=== PATIENT | female | born 2000 ===

== ENCOUNTER 2023-07-12 13:27 | Emergency (ER) | payer BC, SELFPAY ==
--- NOTE | ~2023-07-12 | XR_ITS ---
EXAMINATION: XR HAND, LEFT CLINICAL INFORMATION: Laceration, assess foreign bodies COMPARISON: None available. TECHNIQUE: PA, lateral, and oblique views of the left hand. FINDINGS: The bones and soft tissues are normal. No fracture. Alignment is anatomic. Joint spaces are maintained. No erosions or soft tissue calcifications. XR/XR hand LT min 3V IMPRESSION: Normal left hand.
[2023-07-12 13:50] VITALS: BP 141/88; PULSE 100; RESP 19; TEMP 36.6; O2SAT 98; BMI 31.6
--- NOTE | 2023-07-12 13:52 | ED_ITS ---
HPI - Wound/Laceration General Chief Complaint: Wound/Laceration Stated Complaint: Laceration L hand Time Seen by Provider: 07/12/23 14:19 Source: patient Mode of arrival: ambulatory Limitations: no limitations History of Present Illness HPI narrative: Patient is a 22-year-old right hand dominant female presenting to the emergency department with complaint of laceration to right hand sustained at work. Patient states a piece of sheet metal fell a few inches onto her hand. Tetanus is up to date. Denies any weakness, numbness, tingling. Onset (ago): hour(s) Extremity Location: right: hand Place: work Patient tetanus UTD: Yes Context: accidental Associated symptoms: pain Treatments prior to arrival: bandage Related Data Allergies Allergy/AdvReac Type Severity Reaction Status Date / Time No Known Allergies Allergy Verified 07/12/23 13:53 Review of Systems 2 Review of Systems: As per HPI. Yes all other systems are reviewed and are negative Constitutional: Constitutional: Reports as per HPI [facility] Social History Social History Advance Directives: No Advance Directives Information Provided: No Physical Exam 2 Vital Signs: Vital Signs: Last Vital Signs Temp 98 F 07/12/23 13:50 Pulse 100 07/12/23 13:50 Resp 19 07/12/23 13:50 BP 141/88 H 07/12/23 13:50 Pulse Ox 98 07/12/23 13:50 O2 Del Method Room Air 07/12/23 13:50 BMI result Body Mass Index 31.6 Vital signs have been reviewed and appear to be correct. Blood pressure elevated. Heart rate normal. Respiratory rate normal. Temperature normal. Oxygen saturation normal. Const: General: cooperative, healthy appearing and no acute distress O rientation/consciousness: oriented to person, oriented to place, oriented to time and patient oriented x3 Limitations: no limitations HEENT: Head: Yes normocephalic and Yes atraumatic Ears: external ears normal General nose exam: Normal external nose present Face and sinus: Yes face symmetric Mouth: oropharynx normal and moist mucous membranes Throat: Yes uvula midline Eyes: Pupils: Equal, round and reactive pupils present Neck: Neck: Yes normal visual inspection and Yes supple Resp: Effort & Inspection: normal respiratory effort and able to speak in complete sentences Auscultation: clear to auscultation bilaterally Cardio: Rate: regular rate Rhythm: regular rhythm Heart sounds: S1 normal heart sound present and S2 normal heart sound present Skin: General skin exam: elasticity normal and turgor normal Neuro: General: oriented to person, oriented to place, oriented to time, patient oriented x3, moves all extremities, no focal motor deficits and CN's II- XI intact bilaterally Cranial nerves: Yes Equal, round and reactive pupils present Cognition (Neuro): normal cognition Extrem: General: Yes full ROM, Yes normal exam except as noted, Yes no pedal edema and Yes no calf tenderness Right upper extremity: Extremity exam: right hand Details: normal capillary refill, neuromotor exam normal, neurosensory exam normal, tendon exam normal, normal ROM of fingers and laceration 5th digit palmar aspect proximal Details: linear Hand/finger images: 1. 2cm linear laceration without active bleeding Psych: Mental Status: mental status grossly normal Affect: normal affect Thought process: Normal thought process present Course Course Course Narrative: This is a Rapid Medical Examination (RME) in triage, full HPI, ROS, assessment and plan per primary provider in the Main ED. 22 y/o right hand dominant female presenting for a laceration to the base of the 5th digit on the palmar side of her hand that occurred just prior to arrival when she cut herself on a piece of metal. Unsure if small piece of metal got in. Plan: XR, suture repair. Tdap up to date Medications Administered Discontinued Medications Generic Name Dose Route Start Last Admin Trade Name Gerda PRN Reason Stop Dose Admin Bacitracin 1 appl 07/12/23 14:23 07/12/23 14:29 Bacitracin Oint 0.9 Gm Packet TOPICAL 07/12/23 14:24 1 appl ONCE ONE Administration Protocol Lidocaine HCl 5 ml 07/12/23 14:23 07/12/23 14:29 Lidocaine Hcl 1 % Mpf 5 Ml Vial INFILTRATI 07/12/23 14:24 5 ml ONCE ONE Administration Medical Decision Making Medical Decision Making MDM Narrative: Patient is a 22-year-old right hand dominant female presenting to the emergency department with complaint of laceration to right hand sustained at work. On exam patient is awake, A+Ox3, VS WNL, afebrile, normal neurological exam without focal deficits, physical exam findings as above. Given reported symptoms and physical exam findings, initial differential includes laceration, foreign body, fracture. X-ray notable for no evidence of foreign body. My interpretation is in agreement with the radiologist's interpretation. Laceration repaired as per procedure note. Patient educated on wound care and suture removal, advised to assess daily for signs of infection and return if this occurs. Instructed patient to keep hand out of standing water and specifically outdoor water. Return precautions discussed at bedside. Patient verbalized understanding of and agreement with plan. Differential Diagnosis Differential Diagnoses: The differential diagnosis associated with the presentation includes As per MDM. Independent Interpretation I performed an independent interpretation of an: Plain X-Ray Interpretation: No evidence of foreign body on hand x-ray Radiology Impression Discussion of test interpretation with radiology: I have reviewed the radiologist's reading. Radiologist Impression: XR/XR hand LT min 3V IMPRESSION: Normal left hand. External Record Review External record reviewed: Inpatient record, Office record and Outpatient record Procedures Laceration Laceration 1: Site: hand Side (If applicable): right Size (cm): 2 Description: linear Depth: simple, single layer Local Anesthetic: lidocaine 1% Amount of anesthesia used (mL): 2 Pre-repair: wound explored, irrigated extensively and deep structures intact Skin layer closed with: other (prolene) Size (cm): 5-0 Number of sutures: 5 Technique: simple, interrupted Discharge Plan Discharge Clinical Impression: Laceration Patient Disposition: Home, Self-Care Instructions: Care For Your Stitches (DC), Laceration (DC), Stitches Removal (ED) Additional Instructions: You have been evaluated in the emergency department today for a laceration to your hand. Your laceration was repaired in the emergency department with 5 sutures. Please keep the area surrounding the laceration clean and dry and keep dressing in place for the next 24 hours. After that please change the dressing and assess the wound daily. Do not submerge your hand in water until the wound has fully healed, it is especially important to avoid putting her hand in any outdoor water such as [place], streams, etc.. If you develop increasing redness, swelling, thick yellow drainage please return to the emergency department immediately for reassessment. You should have the sutures removed in 7-10 days. If you develop fever, redness, swelling at the site of your laceration, or thick yellow drainage please come back to the ER for a wound check. Print Language: Nigerien
[2023-07-12] MEDS: Lidocaine HCl 1 % MPF 5 ML VIAL INFILTRATI (14:29)
[2023-07-12] MEDS: Bacitracin Oint 0.9 GM PACKET 1 APPL TOPICAL (14:29)
--- NOTE | 2023-07-12 14:29 | PC.NURSE ---
provider to administer medications
[2023-07-12 16:16] VITALS: BP 141/88; PULSE 100; RESP 19; TEMP 36.6; O2SAT 98
== END 2023-07-12 16:16 | disposition home or self-care (01) ==
PROVIDERS: Emergency Provider Emergency Medicine
DX: S61.411A Laceration without foreign body of right hand, initial encounter (principal); M79.641 Pain in right hand; X58.XXXA Exposure to other specified factors, initial encounter; Y93.9 Activity, unspecified; Y92.9 Unspecified place or not applicable; Y99.0 Civilian activity done for income or pay
CPT/HCPCS: 12001; 73130; 99282; 99284

== ENCOUNTER 2023-07-23 09:26 | Emergency (ER) | payer BC, SELFPAY ==
[2023-07-23 09:58] VITALS: BP 116/66; PULSE 94; RESP 16; TEMP 36.5; O2SAT 97; BMI 32.0
--- NOTE | 2023-07-23 12:16 | ED.WOUNDLAC ---
HPI - Wound/Laceration General Chief Complaint: Wound/Laceration Stated Complaint: removal of stitches Time Seen by Provider: 07/23/23 12:10 Source: patient Mode of arrival: ambulatory Limitations: no limitations History of Present Illness HPI narrative: 22 yr female here for suture removal. Had 5 sutures placed on 07/11 in left hand. No complaints. Related Data Allergies Allergy/AdvReac Type Severity Reaction Status Date / Time No Known Allergies Allergy Verified 07/23/23 09:59 Review of Systems Review of Systems: Yes all other systems are reviewed and are negative Constitutional: Constitutional: Reports no additional constitutional complaints, Denies body ache(s), Denies chills, Denies fever(s), Denies headache(s) and Denies weakness Eyes: Eyes: Reports no additional eye complaints and Denies change in vision ENT: Reports system reviewed and no additional complaints, except as documented, Denies dizziness, Denies headache(s), Denies nasal congestion, Denies nasal discharge and Denies neck pain Cardiovascular: Cardiovascular: Reports no additional cardiovascular complaints, Denies chest pain, Denies leg edema and Denies dyspnea Respiratory: Respiratory: Reports no additional respiratory complaints, Denies cough and Denies dyspnea Gastrointestinal: Gastrointestinal: Reports no additional gastrointestinal complaints, Denies abdominal pain, Denies diarrhea, Denies nausea and Denies vomiting Genitourinary: Genitourinary: Reports no additional female genitourinary complaints and Denies urinary incontinence Musculoskeletal: Musculoskeletal: Reports no additional musculoskeletal complaints, Denies back pain, Denies arthralgias, Denies joint swelling, Denies neck pain, Denies numbness and Denies tingling Integumentary/Breasts: Skin/Breast: Reports system reviewed and no additional complaints, except as docu and Denies rash Neurologic: Reports system reviewed and no additional complaints, except as documented, Denies Abnormal speech present, Denies dizziness, Denies headache(s), Denies numbness, Denies tingling and Denies weakness [facility] Past Medical History Attestation statement: The following information was validated with the patient. Source: old records reviewed and nursing notes reviewed Physical Exam Vital Signs: Vital Signs: Last Vital Signs Temp 97.7 F 07/23/23 09:58 Pulse 94 07/23/23 09:58 Resp 16 07/23/23 09:58 BP 116/66 07/23/23 09:58 Pulse Ox 97 07/23/23 09:58 O2 Del Method Room Air 07/23/23 09:58 BMI result Body Mass Index 32.0 Const: General: cooperative, healthy appearing, comfortable and no acute distress Orientation/consciousness: patient oriented x3 Limitations: no limitations HEENT: Head: Yes normal to inspection Ears: hearing grossly normal bilaterally General nose exam: Normal external nose present Face and sinus: Yes normal facial exam Mouth: Normal oral and palatal mucosa present Throat: Yes posterior oropharynx normal Eyes: General: appearance normal, both eyes and all related structures Pupils: Equal, round and reactive pupils present Neck: Neck: Yes normal visual inspection Chest: Chest palpation & inspection: normal inspection of the chest Resp: Effort & Inspection: normal respiratory effort Auscultation: clear to auscultation bilaterally Cardio: Rate: regular rate Rhythm: regular rhythm Peripheral pulses: Peripheral pulses 2+ throughout GI: Inspection: Yes normal to inspection Palpation (GI): Soft to palpation and nontender Auscultation: normal bowel sounds Back/Spine/Pelvis: Thoracic/Lumbar Spine: thoracic and lumbar spine normal to inspection Skin: General skin exam: no rashes or lesions noted Neuro: General: patient oriented x3, no focal motor deficits and normal sensation to monofilament Cranial nerves: Yes Equal, round and reactive pupils present Cognition (Neuro): normal cognition Speech: No Abnormal speech present Gait exam (Neuro): Normal gait present Motor exam (neuro): 5/5 motor strength present throughout Extrem: General: Yes normal to inspection Hand/finger images: 1. 5 sutures present. edges approximated. no erythema, swelling, drainage noted Medical Decision Making Medical Decision Making MDM Narrative: 22 yr female here for suture removal. Had 5 sutures placed on 07/11 in left hand. No complaints. See procedure note. Differential Diagnosis Differential Diagnoses: The differential diagnosis associated with the presentation includes wound infection, suture removal Prescription Management I considered prescription management with: Antibiotic Procedures Procedure Narrative Procedure Narrative: 5 sutures present left hand. Removed with no complication. Site cleansed and topical dressing applied. Discharge Plan Discharge Clinical Impression: Visit for suture removal Patient Disposition: Home, Self-Care Instructions: Stitches Removal (ED) Print Language: Cook Islander
[2023-07-23 12:34] VITALS: BP 116/66; PULSE 94; RESP 16; TEMP 36.5; O2SAT 97
== END 2023-07-23 12:35 | disposition home or self-care (01) ==
PROVIDERS: Emergency Provider Emergency Medicine
DX: Z48.02 Encounter for removal of sutures (principal)
CPT/HCPCS: 99282

== ENCOUNTER 2024-06-02 15:39 | Emergency (ER) | payer BC, SELFPAY ==
[2024-06-02 16:47] VITALS: BP 138/77; PULSE 97; RESP 18; TEMP 35.8; O2SAT 99; BMI 33.8
--- NOTE | 2024-06-02 16:47 | ED.GENADULT ---
HPI - General Adult General Chief complaint: Skin/Abscess/Foreign Body Stated complaint: cyst on tailbone Time Seen by Provider: 06/03/24 10:22 Source: patient, RN notes reviewed and old records reviewed Mode of arrival: ambulatory History of Present Illness ED Provider: Keeley España PA-C HPI narrative: 23-year-old female with no significant past medical history presenting to the ED complaining of suspected pilonidal cyst x5 days. Reports increasing pain. Denies fever, chills, drainage from area, difficulty or inability to have BM/urinate. Admits to similar symptoms in the past requiring I&D Related Data Previous Rx's ?Medication ?Instructions ?Recorded cephalexin 500 mg capsule 500 mg PO QID 7 days #28 caps 06/03/24 Allergies Allergy/AdvReac Type Severity Reaction Status Date / Time No Known Allergies Allergy Verified 06/02/24 16:50 Review of Systems Review of Systems: Yes all other systems are reviewed and are negative Constitutional: Constitutional: Reports as per [facility] Past Medical History Attestation statement: The following information was validated with the patient. Source: old records reviewed Social History Social History Advance Directives: No Advance Directives Information Provided: Yes Physical Exam ED Vital Signs: Vital Signs - 24 hr 06/02/24 16:47 06/02/24 18:00 06/02/24 23:57 Temperature 96.4 F L 97.8 F 97.9 F Pulse Rate 97 110 H 93 Respiratory Rate 18 16 17 Blood Pressure 138/77 135/71 121/77 Pulse Oximetry 99 100 97 Oxygen Delivery Method Room Air Room Air Room Air 06/03/24 04:35 06/03/24 09:52 Temperature 97.8 F 98.3 F Pulse Rate 102 H 96 Respiratory Rate 20 18 Blood Pressure 146/99 H 136/89 Pulse Oximetry 96 98 Oxygen Delivery Method Room Air Room Air BMI result Body Mass Index 33.8 Const General: cooperative, healthy appearing and no acute distress Orientation/consciousness: patient oriented x3 Limitations: no limitations HENMT Head: Yes normal to inspection and Yes atraumatic Ears: hearing grossly normal bilaterally General nose exam: Normal external nose present Face and sinus: Yes normal facial exam Eyes General: appearance normal, both eyes and all related structures EOM: EOMs intact bilaterally Neck Neck: Yes normal visual inspection and Yes no meningeal signs Resp Effort & Inspection: normal respiratory effort and no respiratory distress Cardio Rate: regular rate Skin Other: + pilonidal cysts appreciated with fluctuance. No induration. Faint overlying erythema. Neuro General: patient oriented x3, tone normal and no meningeal signs Cranial nerves: Yes CN's II-XII intact bilaterally Gait exam (Neuro): Normal gait present Extrem General: Yes normal to inspection Course Course Course Narrative: RME performed by Iliana Mcdonald PA-C. Patient is a 23 year old assigned female at presenting to the emergency department with a lump to her upper buttock. Patient states it has been growing over the last 3 days. Detailed physical exam and review of systems are deferred to the payroll assistant. Patient placed back in the waiting room pending room availability. -I&D successfully performed. Packing placed. Discussed needed removal in 48 hours >Results discussed with patient including worrisome signs and symptoms and strict return precautions, and when to return to the emergency department. They verbalized understanding and feel safe for discharge at this time. Medications Administered Discontinued Medications Generic Name Dose Route Start Last Admin Trade Name Freq PRN Reason Stop Dose Admin Acetaminophen 650 mg 06/02/24 21:05 06/02/24 21:25 Acetaminophen 325 Mg Tablet PO 06/02/24 21:06 650 mg ONCE ONE Administration Ibuprofen 600 mg 06/03/24 04:36 06/03/24 04:39 Ibuprofen 600 Mg Tablet PO 06/03/24 04:37 600 mg ONCE ONE Administration Lidocaine HCl 5 ml 06/03/24 10:42 06/03/24 10:47 Lidocaine Hcl 1 % Mpf 5 Ml Vial INFILTRATI 06/03/24 10:43 5 ml ONCE ONE Administration Procedures Abscess I/D Site: other (Pilonidal cyst) Local Anesthetic: lidocaine 1% Amount of anesthesia used (mL): 5 Technique: incised with blade Sent for culture/gram staining?: No Irrigation: No Packing used?: iodoform Medical Decision Making Medical Decision Making [facility] Narrative: 23-year-old female with no significant past medical history presenting to the ED complaining of suspected pilonidal cyst x5 days. On exam vital signs stable, NAD, nontoxic appearing, physical exam as noted above. Pilonidal cyst requiring I&D with faint overlying erythema. No evidence of Haresh's gangrene Plan: I & D Please refer to course for remaining clinical decision making, interpretation of labs/imaging results, and discussions with consultants and/or family members. Differential Diagnosis Differential Diagnoses: The differential diagnosis associated with the presentation includes As above External Record Review External record reviewed: Inpatient record, Office record, Outpatient record, Prior outpatient labs, Prior outpatient radiology, Primary care record and Outside ED record Tests considered The following testing was considered but not selected: As above Prescription Management I considered prescription management with: Pain Medication and Antibiotic Discharge Plan Discharge Clinical Impression: Pilonidal cyst Patient Disposition: Home, Self-Care Instructions: Pilonidal Cyst (ED) Additional Instructions: Your cyst was drained today in the emergency department Packing was placed, you need to return in 2 DAYS FOR PACKING REMOVAL. RETURN TO ANY EMERGENCY DEPARTMENT OR URGENT CARE Keep area dry and clean Keflex as an antibiotic please take as prescribed until completion If area begins to look worse, grow, has persistent purulent drainage or unremitting pain return to the ED Prescriptions: New cephalexin 500 mg capsule 500 mg PO QID 7 Days Qty: 28 0RF Referrals: [facility] [Provider Group] - 1 week Physician,Unknown J [Primary Care Provider] - 2 days (For packing removal) Stand Alone Forms: Work/School Release Print Language: Andorran
[2024-06-02 18:00] VITALS: BP 135/71; PULSE 110; RESP 16; TEMP 36.6; O2SAT 100
[2024-06-02] MEDS: Acetaminophen 325 MG TABLET 650 MG PO (21:25)
[2024-06-02 23:57] VITALS: BP 121/77; PULSE 93; RESP 17; TEMP 36.6; O2SAT 97
[2024-06-03 04:35] VITALS: BP 146/99; PULSE 102; RESP 20; TEMP 36.6; O2SAT 96
[2024-06-03] MEDS: Ibuprofen 600 MG TABLET PO (04:39)
[2024-06-03 09:52] VITALS: BP 136/89; PULSE 96; RESP 18; TEMP 36.8; O2SAT 98
[2024-06-03] MEDS: Lidocaine HCl 1 % MPF 5 ML VIAL INFILTRATI (10:47)
[2024-06-03 11:26] VITALS: BP 136/89; PULSE 96; RESP 18; TEMP 36.8; O2SAT 98
== END 2024-06-03 11:27 | disposition home or self-care (01) ==
PROVIDERS: Emergency Provider Emergency Medicine
DX: L05.91 Pilonidal cyst without abscess (principal); M53.3 Sacrococcygeal disorders, not elsewhere classified
CPT/HCPCS: 10080; 99283; 99284; J2003

== ENCOUNTER 2024-06-05 08:52 | Emergency (ER) | payer BC, SELFPAY ==
[2024-06-05 09:03] VITALS: BP 124/63; PULSE 84; RESP 20; TEMP 36; O2SAT 98; BMI 31.1
--- NOTE | 2024-06-05 11:52 | ED_ITS ---
HPI - Wound/Laceration General Chief Complaint: Wound/Laceration Stated Complaint: Cyst, seen few days ago Time Seen by Provider: 06/05/24 12:08 Source: patient and RN notes reviewed Mode of arrival: ambulatory Limitations: no limitations History of Present Illness ED Provider: Eliana Brewster PA-C HPI narrative: This is a 23-year-old female who presents emergency department for wound check. Patient was seen and evaluated on June 02, 2024 due to a pilonidal cyst. She had this excised and drained and packed. She was told to report to the emergency room for wound check after 48 hours. She states that she has been taking her prescribed antibiotic as directed. She was feeling much better, denies any fevers, increased pain or swelling. She has a follow-up with the surgeon next week. No other complaints or concerns at this time. Onset (ago): day(s) Associated symptoms: none Related Data Previous Rx's ?Medication ?Instructions ?Recorded cephalexin 500 mg capsule 500 mg PO QID 7 days #28 caps 06/03/24 Allergies Allergy/AdvReac Type Severity Reaction Status Date / Time No Known Allergies Allergy Verified 06/05/24 09:06 Review of Systems Review of Systems: Yes all other systems are reviewed and are negative [facility] Past Medical History Attestation statement: The following information was validated with the patient. Social History Social History Advance Directives: No Advance Directives Information Provided: Yes Physical Exam Vital Signs: Vital Signs: Last Vital Signs Temp 96.8 F 06/05/24 12:24 Pulse 84 06/05/24 12:24 Resp 20 06/05/24 12:24 BP 124/63 06/05/24 12:24 Pulse Ox 98 06/05/24 12:24 O2 Del Method Room Air 06/05/24 12:24 BMI result Body Mass Index 31.1 Const: Other: General: Awake, alert, and oriented X3. No acute distress. HEENT: Normal inspection CVS: Normal heart rate and rhythm. Pulses normal. Respiratory: No respiratory distress Skin: At the gluteal cleft, there is a 2 cm surgical excision noted with wick in place, no surrounding erythema or warmth. No fluctuance. Once for wick was removed, no purulence appreciated. Extremities: Normal to inspection Neuro: Oriented X 3. No motor deficit. No sensory deficit. Medications Administered Discontinued Medications Generic Name Dose Route Start Last Admin Trade Name Gerda PRN Reason Stop Dose Admin Ibuprofen 600 mg 06/05/24 12:18 06/05/24 12:25 Ibuprofen 600 Mg Tablet PO 06/05/24 12:19 600 mg ONCE ONE Administration Medical Decision Making Medical Decision Making [facility] Narrative: This is a 23-year-old female who presents emergency department for evaluation wound check. Patient had I and D 2 days ago. She has been taking prescribed antibiotic as directed. On arrival, vital signs within normal limits. Wick was removed, patient tolerated this well. No surrounding erythema or warmth. No fluctuance. She was follow-up with surgeon. Discussed strict return precautions. She understands and agrees with plan. Patient stable for discharge Differential Diagnosis Differential Diagnoses: The differential diagnosis associated with the presentation includes Pilonidal cyst, abscess, cellulitis, wound check Discharge Plan Discharge Clinical Impression: Wound check, abscess Patient Disposition: Home, Self-Care Instructions: Warm Compress or Soak (ED) Additional Instructions: You were seen in the emergency department for a wound check. The pilonidal abscess that you had excise several days ago is well healing. We removed the packing that was placed in this abscess. Please continue taking prescribed antibiotic as directed. Ibuprofen and or Tylenol can help. If any new or worsening symptoms occur including but not limited to worsening redness, swelling, worsening pain, fevers, chills, please seek emergent care. Follow-up with the general surgeon as scheduled. Prescriptions: No Action cephalexin 500 mg capsule 500 mg PO QID 7 Days Qty: 28 0RF Interventions: ED Discharge Assessment Last Done: 06/05/24 12:24 Discharge Date/Time: 06/05/24 12:26 Print Language: French
[2024-06-05 12:24] VITALS: BP 124/63; PULSE 84; RESP 20; TEMP 36; O2SAT 98
[2024-06-05] MEDS: Ibuprofen 600 MG TABLET PO (12:25)
== END 2024-06-05 12:26 | disposition home or self-care (01) ==
PROVIDERS: Emergency Provider Emergency Medicine
DX: Z48.00 Encounter for change or removal of nonsurgical wound dressing (principal)
CPT/HCPCS: 99283

== ENCOUNTER 2024-06-12 11:24 | Outpatient (AMB) | payer BC, SELFPAY ==
[2024-06-12 11:26] VITALS: BMI 31.1
--- NOTE | 2024-06-12 11:26 | A.OFFVIS_ITS ---
Vital Signs 06/12/24 11:26 Height 5 ft 5 in Weight 187 lb 2.759 oz BMI 31.1 Intake Visit Reasons: Pilonidal cyst Intake Note: This patient presents for [facility] [place] follow-up for pilonidal cyst. Pt c/o; completed Cephalexin 500 mg, reports no concerns with the area at this time. Strategic Debriefing Officer Required: No Accompanied by: Self / Same As Patient Allergies No Known Allergies Allergy (Verified 06/12/24 11:31) Medication List - Last Reviewed 06/12/24 by DORIS Martinez cephalexin 500 mg PO QID 7 days HPI HPI Pilonidal cyst: Details: [age] year old female referred for a pilonidal cyst. She has had this area of swelling with tenderness and pain on the tailbone for over a year. She would have episodes were in she says this would ?bubble up?. She was in the ER last week and underwent an I&D of this for an abscess. She was therefore [place] of the pilonidal cyst. She denies significant complaints although she admits to having bipolar disorder. [facility] Medical History (Updated 06/12/24 @ 11:40 by Byron Young MD) Sacrococcygeal pilonidal cyst Bipolar disorder Surgical History (Updated 06/12/24 @ 11:32 by DORIS Martinez) No pertinent past surgical history Social History Alcohol intake: never Patient Tobacco Use Status: Never used Tobacco Review of Systems Const Denies chills and Denies fever(s) Card Denies chest pain, Denies dyspnea and Denies dyspnea on exertion Resp Denies cough, Denies dyspnea and Denies dyspnea on exertion GI Denies hematochezia and Denies change in bowel habits Denies hematuria Musc Denies back pain and Denies limited range of motion Neuro Denies focal weakness and Denies convulsions Psych Denies depression and Denies mood swings Physical Exam Vital Signs: BMI result Body Mass Index 31.1 Const General: comfortable and no acute distress Orientation/consciousness: patient oriented x3 Neck Neck: Yes no lymphadenopathy Resp Auscultation: clear to auscultation bilaterally Cardio Rhythm: regular rhythm GI Palpation (GI): Soft to palpation, nontender and no guarding Back/Spine/Pelvis Other: Multiple midline pits in the gluteal cleft with some residual induration, no fluctuance, no discharge currently Neuro General: patient oriented x3 Assessment & Plan Assessment & Plan (1) Sacrococcygeal pilonidal cyst: Code(s): L05.91 - Pilonidal cyst without abscess Category: Medical Plan She has pilonidal disease of the sacrococcygeal area as described above. She had undergone I and D of the area last week because of an abscess. I explained the technique of excision under anesthesia. I reviewed the risks including but not limited to bleeding, infections, poor healing, postop pain, as well as the benefits and alternatives. I also explained to her what to expect postoperatively. She wants to proceed. Coding Level of Care Code New Pt Level 3 (52450) Diagnoses Sacrococcygeal pilonidal cyst L05.91
== END 2024-06-12 11:43 | disposition home or self-care (01) ==
LOC: HO.HGS 11:25
PROVIDERS: Visit Provider Surgery
DX: L05.91 Pilonidal cyst without abscess (principal)
CPT/HCPCS: 99203

== ENCOUNTER → 2024-06-12 11:24 | Outpatient (BNVA) | payer BC, SELFPAY | PROVIDERS: Visit Provider Surgery ==

== ENCOUNTER 2024-07-03 07:09 | Day surgery (SDC) | payer BC, SELFPAY ==
--- NOTE | 2024-07-02 09:46 | HO.ANESPROP2 ---
Documented by User: Vicky Gilliland NP 07/02/24 09:47 HPI - Anesthesia Eval Consult details Narrative: 23yo F for Excision Pilonidal Cyst Sacrococcygeal Area PMFSH Active Problems Active Problems: All Active Problems Sacrococcygeal pilonidal cyst (Acute) Bipolar disorder (Acute) Past Medical History Medical History Sacrococcygeal pilonidal cyst Bipolar disorder Surgical History Surgical History No pertinent past surgical history Social History Social History Are you a primary health care legal assistant to a significant other at home: No Do you presently have visiting nurse or other home services: No Alcohol intake: never Patient Tobacco Use Status: Former Tobacco user Tobacco use type: Cigarette Use of substances other than those prescribed or required for medical reasons: No Have you been hit, kicked, punched, or otherwise hurt by someone within the past year? If so, by whom?: No Are you DNR?: No Advance Directives: No Advance Directives Information Provided: Yes Patient : No FDLMP: 07/01/2024 Meds Allergies Allergy/AdvReac Type Severity Reaction Status Date / Time No Known Allergies Allergy Verified 07/03/24 07:59 Home Medications ?Medication ?Instructions ?Recorded ?Confirmed ?Last Taken ?Type aripiprazole 5 mg tablet 5 mg PO DAILY 07/03/24 07/03/24 07/03/24 History bupropion HCl 300 mg 24 hr tablet, 300 mg PO QAM 07/03/24 07/03/24 07/03/24 History extended release lamotrigine 100 mg tablet,extended 100 mg PO DAILY 07/03/24 07/03/24 Unknown History release 24 hr loratadine-pseudoephedrine ER 10 tab PO 07/03/24 07/03/24 History mg-240 mg tablet,extended [id number] (Lorata-D) melatonin 5 mg chewable tablet 5 mg PO DAILY 07/03/24 07/03/24 Unknown History Assessment and Plan Assessment Anesthesia Assessment: Chart Reviewed Documented by User: Quiana Kumar MD 07/03/24 09:52 PMFSH Active Problems Active Problems: All Active Problems Sacrococcygeal pilonidal cyst (Acute) Bipolar disorder (Acute) H/o smoking. Quit cigarettes 1 week ago Quit marijuana use 02/2924 Increased BMI. Denies GOLDY Past Medical History Medical History Sacrococcygeal pilonidal cyst Bipolar disorder Family History Family history of problems with anesthesia: No Surgical History Surgical History No pertinent past surgical history History of Problems with Anesthesia: No Social History Social History Are you a primary health care legal assistant to a significant other at home: No Do you presently have visiting nurse or other home services: No Alcohol intake: never Patient Tobacco Use Status: Former Tobacco user Tobacco use type: Cigarette Use of substances other than those prescribed or required for medical reasons: No Have you been hit, kicked, punched, or otherwise hurt by someone within the past year? If so, by whom?: No Are you DNR?: No Advance Directives: No Advance Directives Information Provided: Yes Patient : No FDLMP: 07/01/2024 Meds Allergies Allergy/AdvReac Type Severity Reaction Status Date / Time No Known Allergies Allergy Verified 07/03/24 07:59 Home Medications ?Medication ?Instructions ?Recorded ?Confirmed ?Last Taken ?Type aripiprazole 5 mg tablet 5 mg PO DAILY 07/03/24 07/03/24 07/03/24 History bupropion HCl 300 mg 24 hr tablet, 300 mg PO QAM 07/03/24 07/03/24 07/03/24 History extended release lamotrigine 100 mg tablet,extended 100 mg PO DAILY 07/03/24 07/03/24 Unknown History release 24 hr loratadine-pseudoephedrine ER 10 tab PO 07/03/24 07/03/24 History mg-240 mg tablet,extended [id number] (Lorata-D) melatonin 5 mg chewable tablet 5 mg PO DAILY 07/03/24 07/03/24 Unknown History Exam Height,Weight and Vital Signs: Height 5 ft 2 in Weight 83.915 kg Vital Signs Temp Pulse Resp BP Pulse Ox O2 Del Method 07/03/24 08:20 97.8 F 77 14 117/71 98 Room Air Pertinent Lab Results Pertinent Lab Results: Lab Results 07/03/24 Range/Units 07:50 Urine Test NEGATIVE (NEGATIVE) Airway Mallampati Class: II TM Dist: >3cm Neck ROM: Full Loose/Missing/Broken Teeth: Yes (Missing tooth top right back. Denies broken or loose teeth) Heart: RRR Lungs: CTAB Assessment and Plan Assessment Anesthesia Assessment: Anesthesia Plan Discussed and Chart Reviewed Final Anesthetic Review Family History of Problems with Anesthesia: No History of Problems with Anesthesia: No NPO: Yes ASA Class: II Final Preanesthetic Review: No Changes in Pt Med Stat, Meds/Allgs Chart Reviewed, Consent Obtained/Reviewed and Anes Risks/Benef Reviewed Patient Risk: Low Procedure Risk: Low Assessment/Block/Sedation in SS: Assess/Block/Sedation-SS Anesthetic Plan Anesthetic Plan: GA Disposition: Standard PACU
[2024-07-03 08:19] LABS: UPreg QC Valid YES; Urine Pregnancy NEGATIVE (NEGATIVE)
[2024-07-03 08:20] VITALS: BP 117/71; PULSE 77; RESP 14; TEMP 36.6; O2SAT 98; BMI 33.8
[2024-07-03] MEDS: Lactated Ringers 1,000 ML 100 ML IVCONT (08:34)
--- NOTE | 2024-07-03 09:25 | MHC.SHP ---
Pre-Procedural Eval Section A - 24 Hr Update-Section A only Date of Service: 07/03/24 The patient is an INPATIENT: No Changes since office visit: No Cold of Flu in the past 2 weeks, No New Medical Problems, No Changes in Medication and No Patient answered all questions The patient has been examined within 24 hours of the surgical procedure. The History & Physical has been completed within 30 days and I have reviewed it.: Yes Section B - Complete if H&P > 30 days Chief Complaint: Pilonidal cyst without abscess Allergies: Allergies Allergy/AdvReac Type Severity Reaction Status Date / Time No Known Allergies Allergy Verified 07/03/24 07:59 Plan I have reviewed the history and physical and performed a pertinent physical examination on my patient. No changes have occurred unless specified. Time Spent With Patient Time: Total time managing care of this patient today ____ minutes.
[2024-07-03] MEDS: Acetaminophen 1,000 MG/100 ML PIGGYBACK 400 MG IV (09:30)
[2024-07-03] MEDS: ceFAZolin Sodium/Dextrose,Iso 2 GM/50 ML PIGGYBACK IV (09:30)
--- NOTE | 2024-07-03 10:24 | P.OP_ITS ---
Operative Note Operative Note Date of Service: 07/03/24 Narrative: Preop diagnosis: Pilonidal cyst, sacrococcygeal area Postop diagnosis: The same Procedure: Excision of pilonidal cyst, sacrococcygeal area Surgeon: Byron Young MD Global Risk Management Director: Ciaran Alonso MS3 The patient is a 23 year female with note of a pilonidal cyst on the sacrococcygeal area. She understood the technique of excision and was aware of the risks, benefits, and alternatives She was brought to the operating room. She was placed in prone position under general anesthesia via endotracheal tube. The buttocks were retracted with wide tape laterally. The sacrococcygeal area was prepped and draped in the usual sterile fashion. A surgical time-out was done. The patient received cefazolin 2 g IV preoperatively I infiltrated the planned line of incision with lidocaine 1%. There was note of multiple midline pits in the gluteal cleft along with the induration on the sacrococcygeal area. I made an incision elliptically around this area to include all the midline pits as well as the entire in the area of induration with a blade 15. This carried down through the full-thickness of the skin and subcutaneous fat to excise all the diseased tissue. There was note of some subcutaneous abscess as well. I used electrocautery to excise this entire diseased area. The area excised was about 6.5 cm long by about 3 cm wide, and included very deep subcutaneous tissue I used electrocautery to achieve hemostasis. I cauterized all oozing areas. I copiously irrigated I created thick flaps of subcutaneous fat and skin on both sides by undermining this with electrocautery to allow closure without tension. I then reapposed deep subcutaneous tissue with Polysorb 2-0 simple interrupted sutures. More superficial subcutaneous tissue was reapposed with Polysorb 3-0 simple interrupted sutures. Skin closure was achieved with nylon 3-0 simple interrupted sutures alternating with vertical mattress sutures The area was then infiltrated with Marcaine 0.5% for postop analgesia. Dressings were applied. The procedure was completed The patient tolerated the procedure well. There were no immediate complications. Initial and final counts of sponges and instruments were correct. Estimated blood loss was about 30 cc The patient was extubated without difficulty and transferred to the recovery room with stable vital signs.
[2024-07-03 10:31] VITALS: BP 127/74; PULSE 90; RESP 12; TEMP 36.1; O2SAT 97
[2024-07-03 10:36] VITALS: BP 121/67; PULSE 91; RESP 16; O2SAT 100
[2024-07-03 10:41] VITALS: BP 130/83; PULSE 90; RESP 16; O2SAT 100
[2024-07-03 10:46] VITALS: BP 124/79; PULSE 93; RESP 16; O2SAT 100
[2024-07-03 11:01] VITALS: BP 121/70; PULSE 83; RESP 16; TEMP 36.1; O2SAT 100
== END 2024-07-03 12:15 | disposition home or self-care (01) ==
PROVIDERS: Nurse Practitioner; Visit Provider Surgery
PROC: (CPT 11771; principal; 2024-07-03 09:10)
DX: L05.01 Pilonidal cyst with abscess (principal); F31.9 Bipolar disorder, unspecified; Z79.899 Other long term (current) drug therapy; Z87.891 Personal history of nicotine dependence
CPT/HCPCS: 11771; 81025; 88304; J0131; J0690; J1100; J1885; J2003; J2250; J2405; J2704; J2795; J3010

== ENCOUNTER → 2024-07-03 07:09 | Outpatient (BNV) | payer BC, SELFPAY | PROVIDERS: Visit Provider Surgery | DX: L05.01 Pilonidal cyst with abscess (principal) | CPT/HCPCS: 11772 ==

== ENCOUNTER 2024-07-16 11:35 | Outpatient (AMB) | payer BC, SELFPAY ==
--- NOTE | 2024-07-16 11:44 | A.OFFVIS_ITS ---
Vital Signs 07/16/24 11:48 Height 5 ft 2 in Weight 184 lb 15.485 oz BMI 33.8 Respiration 16 Pulse 78 Intake Visit Reasons: S/P Pilonidal cyst Intake Note: Patient is seen in office for post op assessment post pilonidal cyst. Pt c/o: per pt pulled a stitch, pain is tolerable, still has some minimal discharge surgery:07/03/24 [employer] Required: No Accompanied by: Self / Same As Patient Allergies No Known Allergies Allergy (Verified 07/16/24 11:47) HPI HPI S/P Pilonidal cyst: Details: She underwent excision of a pilonidal cyst from the sacrococcygeal area last 07/03/2024. She tolerated procedure well. She currently denies significant complaints. [facility], [facility] Medical History Sacrococcygeal pilonidal cyst Bipolar disorder Surgical History History of excision of pilonidal cyst (07/03/24) Social History Are you a primary care provider to a significant other at home: No Do you presently have visiting nurse or other home services: No Alcohol intake: never Patient Tobacco Use Status: Former Tobacco user Tobacco use type: Cigarette Review of Systems Const Denies chills and Denies fever(s) Card Denies chest pain, Denies dyspnea and Denies dyspnea on exertion Resp Denies cough, Denies dyspnea and Denies dyspnea on exertion GI Denies hematochezia and Denies change in bowel habits Denies hematuria Musc Denies back pain and Denies limited range of motion Neuro Denies focal weakness and Denies convulsions Psych Denies depression and Denies mood swings Physical Exam Const General: comfortable and no acute distress Resp Effort & Inspection: normal respiratory effort Back/Spine/Pelvis Other: Excision site on the sacrococcygeal area is well healed, not infected, sutures intact, no cellulitis Assessment & Plan Assessment & Plan (1) Sacrococcygeal pilonidal cyst: Code(s): L05.91 - Pilonidal cyst without abscess Category: Medical Plan: Status post excision. Her incision is well healed. I removed all her sutures. I reinforced the incision with Steri-Strips. Her path report shows findings consistent with a pilonidal disease of the sacrococcygeal area. She can follow up on a p.r.n. basis. Coding Level of Care Code Global (58075) Diagnoses Sacrococcygeal pilonidal cyst L05.91
[2024-07-16 11:48] VITALS: PULSE 78; RESP 16; BMI 33.8
== END 2024-07-16 11:55 | disposition home or self-care (01) ==
LOC: HO.HGS 11:36
PROVIDERS: Visit Provider Surgery
DX: L05.91 Pilonidal cyst without abscess (principal)
CPT/HCPCS: 99024